=== PATIENT | male | born 1945 | race Caucasian/White ===

== ENCOUNTER 2023-04-05 11:17 | Outpatient (RCR) | payer MEDICARE, OTHER, SELFPAY | END 2023-04-05 23:59 | disposition home or self-care (01) | LOC: CRHB 11:17 | PROVIDERS: ATTENDING PHYSICIAN Internal Medicine Cardiovascular Disease; FAMILY PHYSICIAN Internal Medicine | DX: Z95.4 Presence of other heart-valve replacement (principal) | CPT/HCPCS: G0422; G0423 ==

== ENCOUNTER 2023-04-07 09:44 | Outpatient (RCR) | payer MEDICARE, OTHER, SELFPAY ==
[2023-04-06 09:18] LABS: HDL Cholesterol 50 mg/dl; LDL Cholesterol, Calculated 41 mg/dl; Total Cholesterol 115 mg/dl (50-199); Triglyceride 123 mg/dl (10-149); Very Low Density Lipoprotein 24 mg/dl (0-30)
== END 2023-04-07 23:59 | disposition home or self-care (01) ==
LOC: CRHB 09:44
PROVIDERS: ATTENDING PHYSICIAN Internal Medicine Cardiovascular Disease; FAMILY PHYSICIAN Internal Medicine
DX: Z95.4 Presence of other heart-valve replacement (principal); Z79.02 Long term (current) use of antithrombotics/antiplatelets; Z79.82 Long term (current) use of aspirin; E11.9 Type 2 diabetes mellitus without complications; Z79.84 Long term (current) use of oral hypoglycemic drugs; Z88.2 Allergy status to sulfonamides
CPT/HCPCS: 36415; 80061; 93797; G0422; G0423

== ENCOUNTER → 2023-06-26 08:03 | Outpatient (REF) | payer MEDICARE, OTHER, SELFPAY ==
[2023-06-26 09:14] LABS: % Basophils 0.8 % (0-2); % Eosinophils 5.5 % (0-6); % Immature Granulocytes 0.3 % (0-0.5); % Lymphocytes 19.2 % (20.5-51.1); % Monocytes 7.7 % (1.7-9.3); % Neutrophils 66.5 % (42.2-75.2); Absolute Basophils 0.1 10^3/uL (0-0.2); Absolute Eosinophils 0.4 10^3/uL (0-0.7); Absolute Lymphocytes 1.3 10^3/uL (1.2-3.4); Absolute Monocytes 0.5 10^3/uL (0.1-0.6); Absolute Neutrophils 4.3 10^3/uL (1.4-6.5); Hematocrit 42.4 % (39.0-52.0); Hemoglobin 14.3 g/dL (13.0-18.0); Mean Corp Hgb Conc. 33.7 g/dL (33.0-37.0); Mean Corpuscular Hgb 31.8 pg (27.0-31.0); Mean Corpuscular Volume 94.4 fL (80.0-94.0); Mean Platelet Volume 10.8 fL (7.4-10.4); Nucleated Red Blood Cells % 0 % (-); Platelet Count 214 10^3/uL (130-400); Red Blood Cell Count 4.49 10^6/uL (4.70-6.10); Red Cell Dist. Width 12.7 % (11.5-14.5); White Blood Cell Count 6.5 10^3/uL (4.8-10.8)
[2023-06-26 09:42] LABS: ALT (SGPT) 15 U/L (0-50); AST (SGOT) 23 U/L (17-59); Albumin 4.3 g/dl (3.5-5.0); Alkaline Phosphatase 47 U/L (38-126); Blood Urea Nitrogen 25 mg/dl (9-20); Carbon Dioxide 28 mmol/L (22-30); Chloride 103 mmol/L (98-107); Glucose 125 mg/dl (70-99); Potassium 4.4 mmol/L (3.5-5.1); Sodium 139 mmol/L (135-145); Total Bilirubin 0.6 mg/dl (0.2-1.3); Total Protein 6.7 g/dl (6.3-8.2); eGFR > 60.00
[2023-06-26 10:15] LABS: TSH Reflex To Free T4 1.28 uIU/ml (0.47-4.68)
[2023-06-26 10:30] LABS: Microalbumin, Random Urine 1.5 mg/dl (0.6-1.7); Microalbumin/creatinine Ratio 17.4 mg/g
[2023-06-26 11:23] LABS: Glycohemoglobin (HgbA1c) 6.8 % (4.0-5.6)
[2023-06-29 14:15] LABS: Magnesium 2.1 mg/dl (1.6-2.3)
[2023-06-29 16:30] LABS: Vitamin B12 189 pg/ml (239-931)
== END ==
LOC: REG 08:03
PROVIDERS: ATTENDING PHYSICIAN Nurse Practitioner Family; FAMILY PHYSICIAN Internal Medicine
DX: R53.83 Other fatigue (principal); E11.65 Type 2 diabetes mellitus with hyperglycemia
CPT/HCPCS: 36415; 80053; 82043; 82570; 82607; 83036; 83735; 84443; 85025

== ENCOUNTER → 2023-07-27 06:27 | Day surgery (SDC) | payer MEDICARE, OTHER, SELFPAY ==
[2023-07-27 10:50] LABS: Glucose - Point of Care 127 mg/dl (70-99)
== END ==
LOC: GI 06:27
PROVIDERS: ATTENDING PHYSICIAN Internal Medicine Gastroenterology
DX: Z12.11 Encounter for screening for malignant neoplasm of colon (principal); D12.4 Benign neoplasm of descending colon; K63.5 Polyp of colon; K57.30 Diverticulosis of large intestine without perforation or abscess without bleeding; K64.8 Other hemorrhoids; Z86.010 Personal history of colon polyps; Z80.0 Family history of malignant neoplasm of digestive organs; Z13.810 Encounter for screening for upper gastrointestinal disorder; K44.9 Diaphragmatic hernia without obstruction or gangrene; K31.89 Other diseases of stomach and duodenum
CPT/HCPCS: 45380; 43239; 88305; 82962; 88342

== ENCOUNTER → 2023-09-22 08:05 | Outpatient (REF) | payer MEDICARE, OTHER, SELFPAY | LOC: REG 08:05 | PROVIDERS: ATTENDING PHYSICIAN Thoracic Surgery (Cardiothoracic Vascular Surgery); FAMILY PHYSICIAN Internal Medicine | DX: Q23.1 Congenital insufficiency of aortic valve (principal) | CPT/HCPCS: 36415; 82565 ==

== ENCOUNTER → 2023-09-27 07:00 | Outpatient (REF) | payer MEDICARE, OTHER, SELFPAY | LOC: RCS 07:00 | PROVIDERS: ATTENDING PHYSICIAN Thoracic Surgery (Cardiothoracic Vascular Surgery); FAMILY PHYSICIAN Internal Medicine | DX: Q23.1 Congenital insufficiency of aortic valve (principal) | CPT/HCPCS: 71275; 93306; Q9967 ==

== ENCOUNTER 2024-01-03 09:03 | Inpatient (IN) | payer MEDICARE, OTHER, SELFPAY ==
[2024-01-03] VITALS (15 sets, daily range): BP systolic 120–161; BP diastolic 53–86; BMI 23.4; BMI 24.3
[2024-01-03 05:13] LABS: % Basophils 0.4 % (0-2); % Eosinophils 0.5 % (0-6); % Immature Granulocytes 0.3 % (0-0.5); % Lymphocytes 8.2 % (20.5-51.1); % Monocytes 4.9 % (1.7-9.3); % Neutrophils 85.7 % (42.2-75.2); Absolute Basophils 0.1 10^3/uL (0-0.2); Absolute Eosinophils 0.1 10^3/uL (0-0.7); Absolute Lymphocytes 0.9 10^3/uL (1.2-3.4); Absolute Monocytes 0.6 10^3/uL (0.1-0.6); Absolute Neutrophils 9.8 10^3/uL (1.4-6.5); Hematocrit 43.2 % (39.0-52.0); Hemoglobin 15.3 g/dL (13.0-18.0); Mean Corp Hgb Conc. 35.4 g/dL (33.0-37.0); Mean Corpuscular Hgb 31.7 pg (27.0-31.0); Mean Corpuscular Volume 89.4 fL (80.0-94.0); Mean Platelet Volume 10.7 fL (7.4-10.4); Nucleated Red Blood Cells % 0 % (-); Platelet Count 239 10^3/uL (130-400); Red Blood Cell Count 4.83 10^6/uL (4.70-6.10); Red Cell Dist. Width 12.4 % (11.5-14.5); White Blood Cell Count 11.5 10^3/uL (4.8-10.8)
[2024-01-03] MEDS: ZOFRAN 4 MG IV (05:21)
[2024-01-03] MEDS: OMNIPAQUE 50 ML PO (05:22)
[2024-01-03 05:24] LABS: ALT (SGPT) 35 U/L (0-50); AST (SGOT) 34 U/L (17-59); Albumin 5.1 g/dl (3.5-5.0); Alkaline Phosphatase 36 U/L (38-126); Blood Urea Nitrogen 23 mg/dl (9-20); Calcium 10.3 mg/dl (8.4-10.2); Carbon Dioxide 25 mmol/L (22-30); Chloride 100 mmol/L (98-107); Estimated Creatinine Clearance 69 ml/min; Glucose 172 mg/dl (70-99); Lipase 117 U/L (23-300); Potassium 4.7 mmol/L (3.5-5.1); Sodium 141 mmol/L (135-145); Total Bilirubin 0.7 mg/dl (0.2-1.3); Total Protein 7.6 g/dl (6.3-8.2); eGFR > 60.00
[2024-01-03 05:33] LABS: Lactic Acid 1.3 mmol/L (0.7-2.0)
--- NOTE | 2024-01-03 05:58 | ED.GENMED ---
History of Present Illness
General
Chief Complaint: Abdominal Pain
Time Seen by Provider: 01/03/24 05:58
History of Present Illness
History of Present Illness:
TIME OF INITIAL ENCOUNTER: 6 AM
HPI: Yesterday around 4 PM, after eating some sourdough bread, the patient developed epigastric discomfort. This then led to nausea and then vomiting. He never had any diarrhea. He had a normal formed bowel movement in the waiting room this
morning. He has ongoing pain. He was given Zofran prior to my initial evaluation but now the nausea has recurred. He has not had any fevers. He has not had any abdominal surgeries. He had a similar episode but not as severe when he had
Helicobacter. He takes omeprazole.
EXAM:
GENERAL: Well appearing in minimal distress
HEENT: Moist oral mucosa
CARDIOVASCULAR: No murmurs, normal heart rate, regular rhythm, No chest wall tenderness
PULMONARY: No respiratory distress, breath sounds are clear and equal
ABDOMEN: Soft with no peritoneal signs, mild epigastric tenderness
NEUROLOGIC: Excellent strength all extremities, no coordination deficits
PSYCHIATRIC: Appropriate mental status, normal insight and judgement
EXTREMITIES: Nontender, no edema, moves all extremities equally
SKIN: No rash, no lesions
NUMBER AND COMPLEXITY OF PROBLEMS ADDRESSED AT THE ENCOUNTER
� Chronic conditions affecting care: High blood pressure, hyperlipidemia, GERD
� Acute Exacerbation and/or Progression of Chronic Illness: This is an acute problem
� Differential Diagnosis includes: Gastritis, GERD, esophagitis, viral syndrome, foodborne illness
AMOUNT AND/OR COMPLEXITY OF DATA TO BE REVIEWED AND ANALYZED
� I performed an independent evaluation of and my interpretation is:
EKG: Sinus 70, PVCs
CT: I personally reviewed and agree with radiologist interpretation of 'MODERATE-SIZED PARAESOPHAGEAL HIATAL HERNIA with organoaxial positioning of the stomach and moderate gastric distention. Mild distention and moderate wall
thickening in left upper quadrant jejunal small bowel loops. Diagnostic possibilities are (1) an acute gastroenteritis or (2) a partial gastric outlet obstruction secondary to a partially obstructing gastric volvulus'
X-rays:
Laboratory Studies: White count 11.5, chemistries unremarkable however glucose is 172, LFTs and lipase normal
Other:
� Review of other/old records: I reviewed records, the patient had a cath June 2022 that showed nonobstructive coronary disease
� Clinical information was obtained by an independent historian: None needed
� Prescriptions/Medications Considered but not given: Offered but declined any analgesia
� Further testing considered but not performed:
RISK OF COMPLICATIONS AND/OR MORBIDITY OR MORTALITY OF PATIENT MANAGEMENT
� Social determinants of health affecting care: Lives at home
� Discussion with other providers: Hospitalist for admission at 7:18 AM; also discussed with Dr. Espinal at 8:30 AM who recommends NG tube placement
� Escalation of care including admission/observation vs risk of discharge considered: Blood work relatively unremarkable. Given uncertain pain, will obtain CT imaging. Patient could not tolerate any additional oral
contrast�will send for CT now
ANY OTHER UPDATES:
6:10 AM: Patient cannot tolerate any further oral contrast. Zofran had already been given. Will switch to Reglan.
7:15 AM: CT imaging reviewed. Patient only feels minimally improved. Will plan to keep in the hospital for n.p.o./further evaluation.
Past History
Past History
ED Past Medical History: Other (esophageal stricture)
Social History
Personal:
Living: with family
Phy Exam
Physical Exam
Physical Exam:
See HPI
Course
Orders/Labs/Results
Orders:
Orders
01/03/24 04:06
Urinalysis Reflex To Culture Urgent
01/03/24 04:42
Complete Blood Count/With Diff Urgent
Comprehensive Metabolic Panel Urgent
Lactic Acid Urgent
Lipase Urgent
01/03/24 04:57
EKG [Electrocardiogram (*1)] Urgent
Reason for Study: Abdominal Pain
01/03/24 04:58
CT Abd/pel W Iv And Oral Contr Urgent
Comment:
Reason For Exam: abdominal pain, hx of hernia
EKG- Treatment ONCE
Iohexol [Omnipaque] See Protocol PO NOW STA
01/03/24 05:17
Ondansetron Injectable [Zofran] 4 mg .ROUTE .twidoxK-MED ONE
01/03/24 05:20
Ondansetron Injectable [Zofran] 4 mg IV NOW STA
01/03/24 05:56
Metoclopramide [Reglan] 10 mg .ROUTE .[employer]-MED ONE
01/03/24 06:10
0.9% Sodium Chloride 1000 ml [Nss] 1,000 ml IV BOLUS
Diphenhydramine [Benadryl] 25 mg IV NOW STA
Metoclopramide [Reglan] 10 mg IV NOW STA
01/03/24 06:15
H. pylori Antigen, Fecal [S] Urgent
01/03/24 07:12
Famotidine [Pepcid] 20 mg IV NOW STA
01/03/24 07:29
NG Tube [GI tube insertion- Treatment] ONCE
Abnormal Lab Results
01/03/24
04:42
WBC 11.5 H 10^3/uL
(4.8-10.8)
MCH 31.7 H pg
(27.0-31.0)
MPV 10.7 H fL
(7.4-10.4)
Absolute Neuts (auto) 9.8 H 10^3/uL
(1.4-6.5)
Absolute Lymphs (auto) 0.9 L 10^3/uL
(1.2-3.4)
Neutrophils % 85.7 H %
(42.2-75.2)
Lymphocytes % 8.2 L %
(20.5-51.1)
BUN 23 H mg/dl
(9-20)
Glucose 172 H mg/dl
(70-99)
Calcium 10.3 H mg/dl
(8.4-10.2)
Alkaline Phosphatase 36 L U/L
(38-126)
Albumin 5.1 H g/dl
(3.5-5.0)
01/03/24 04:42
01/03/24 04:42
Vital Signs
Initial and Last Documented VS:
Initial Vital Signs
Temp Pulse Resp BP Pulse Ox
98.1 F 78 22 144/86 97
01/03/24 03:48 01/03/24 03:48 01/03/24 03:48 01/03/24 03:48 01/03/24 03:48
Last Documented Vital Signs
Temp Pulse Resp BP Pulse Ox
98.1 F 67 15 151/69 96
01/03/24 03:48 01/03/24 07:23 01/03/24 07:23 01/03/24 07:23 01/03/24 07:23
*Critical Care Note
Total Time (30-74mins, 75-104mins- exclusive of procedures): Not Applicable
ED Attending Note
-
Portions of this chart may have been created with voice recognition software.� Occasional wrong word or��sound alike� substitutions may have occurred due to the inherent limitations of voice recognition software.
Discharge Plan
Departure
Patient Disposition: Admit
Date of Disposition: 01/03/24
Time of Disposition: 07:22
Presentation/result/management discussed w/ accepting MD/DO: Hospitalist
Discharge Problem:
Abdominal pain
Prescriptions:
No Action
metformin 500 MG tablet
1,000 mg PO BID
omeprazole 20 mg Capsule,Delayed Release(Dr/Ec)
40 mg PO BID
dapagliflozin propanediol [Farxiga] 10 mg Tablet
10 mg PO DAILY
losartan 50 mg Tablet
50 mg PO QPM
aspirin 81 mg Tablet,Chewable
325 mg PO QPM
rosuvastatin [Crestor] 40 mg Tablet
40 mg PO QPM
Co Q-10
1 tab PO DAILY
Vitamin B-12
1 tab PO DAILY
Vitamin D3
1 tab PO DAILY
Referrals:
PRIVATE,PHYSICIAN [Family Provider] -
Interventions
Interventions:
*Risk Screen - Suicide Last Done: 01/03/24 03:46
*General Assessment Last Done: 01/03/24 04:55
*Neglect/Abuse Screening Last Done: 01/03/24 03:46
ED- Fall Risk Assessment Last Done: 01/03/24 05:34
*ED COVID-19 Vaccine History Last Done: 01/03/24 04:55
RH-Mnyxry-Gkkyvykkoj Assessment Last Done: 01/03/24 07:25
Discharge Date and Time
Print Language: GREENLANDIC
[2024-01-03] MEDS: BENADRYL 25 MG IV (06:17)
[2024-01-03] MEDS: REGLAN 10 MG IV (06:18)
[2024-01-03] MEDS: NSS 1000 IV (06:19)
--- NOTE | 2024-01-03 06:25 | EDRN ---
Pt. rang call mcgowan at about 0600, told this rn 'I got about half of the first cup of contrast down, but I cannot tolerate it, it makes my pain worse, and I'm so nauseas'. ED attending aware, CT aware. Pt. no longer to drink contrast, CT aware pt. is
ready for them.
[2024-01-03] MEDS: PEPCID 20 MG IV (07:47)
--- NOTE | 2024-01-03 08:38 | HPS.HSE ---
Family Physician
-
Family Physician: PHYSICIAN PRIVATE
Chief Complaint
-
Abdominal pain/nausea/vomiting
History of Present Illness
Patient is a 78-year-old male with past medical history of bicuspid aortic valve/aortic stenosis status post bioprosthetic aortic valve placement, essential hypertension, type 2 diabetes, hiatal hernia, gastroesophageal reflux disease,
hyperlipidemia, history of Schatzki's ring, history of oral herpes came to ER with new onset of abdominal pain nausea and vomiting from yesterday evening. Patient had a sourdough bread yesterday in the evening after which patient started to having
significant epigastric pain associated with nausea and multiple episodes of vomiting. Over the last 12 hours patient have close to 10 episodes of vomiting and bilious in nature, no blood noted. Patient was able to pass a solid bowel movement in
the morning today. Pain located in epigastric region nonradiating, none relieving factor except pain medication. In ER patient had a CT abdomen pelvis showing paraesophageal hernia with Organoaxial rotation of stomach causing gastric outlet
obstruction. Case was discussed with general surgery and patient had an NG tube placed for gastric decompression.
By the patient seen in ER patient was comfortable and not in any distress. Patient denies of having any ongoing feeling of nausea. Associated with above-mentioned abdominal symptom patient was also having chills although no true fever like feeling.
Patient denies of having any cardiopulmonary complaints.
Medical History
Past Medical History
Past Medical History: Reports Other
Additional Past Medical History:
aortic stenosis status post bioprosthetic aortic valve placement, essential hypertension, type 2 diabetes, hiatal hernia, gastroesophageal reflux disease, hyperlipidemia
Past Surgical History: Reports Other
Social History
Tobacco: Non-smoker
Alcohol: None
Drug: None
Personal:
Living: With Family
Family History
Family History: Not pertinent
Allergies / Home Medications
Allergies reflects when Allergies were last updated in [facility].
Home Medications with original date entered in [facility]
Allergy/Medication List:
Allergies
Allergy/AdvReac Type Severity Reaction Status Date / Time
Sulfa (Sulfonamide Allergy Unknown Verified 01/03/24 03:50
Antibiotics)
sulfisoxazole Allergy Unknown Verified 01/03/24 03:50
SURGICAL TAPE Allergy Rash Uncoded 01/03/24 03:50
Home Medications
omeprazole 20 mg capsule,delayed release 40 mg PO BID 06/13/22
rosuvastatin 40 mg tablet (Crestor) 40 mg PO QPM 06/13/22
aspirin 325 mg tablet 325 mg PO DAILY 01/03/24
cholecalciferol (vitamin D3) 25 mcg (1,000 unit) tablet (Vitamin D3) 25 mcg PO DAILY 01/03/24
coQ10 (ubiquinol) 100 mg capsule 100 mg PO DAILY 01/03/24
cyanocobalamin (vitamin B-12) 1,000 mcg tablet 1,000 mcg PO DAILY 01/03/24
dapagliflozin propanediol 10 mg tablet (Farxiga) 10 mg PO DAILY 01/03/24
diphenhydramine 25 mg-acetaminophen 500 mg tablet (Tylenol PM Extra Strength) 1 tab PO HS 01/03/24
losartan 25 mg tablet 25 mg PO DAILY 01/03/24
metformin 500 mg tablet 1,000 mg PO BID 01/03/24
simethicone 80 mg chewable tablet 80 mg PO BIDPRN PRN gas pains 01/03/24
Review of Systems
-
A 12 point ROS was completed and negative except as noted: Yes
Physical Exam
Vital Signs
Vital Signs
Temp Pulse Resp BP Pulse Ox
98.1 F 67 15 144/71 95
01/03/24 03:48 01/03/24 07:23 01/03/24 07:23 01/03/24 08:00 01/03/24 08:30
Physical Exam
General: Well Developed, Well Nourished and No Apparent Distress
HEENT: Atraumatic
Respiratory: Clear
Cardiac: S1/S2 and Regular Rhythm; No Murmur or Rub
GI: Soft, Non Distended and Tender (Epigastric); No Normal Bowel Sounds (Hyperactive bowel sounds) or Organomegaly
Rectal: Deferred by Provider
Musculoskeletal: No Clubbing, No Cyanosis and No Edema
Skin: No Rash
Neuro: Nonfocal/grossly intact
Laboratory Results
-
01/03/24 04:42
01/03/24 04:42
Laboratory Results
PT Cancelled 01/03/24 04:42
INR Cancelled 01/03/24 04:42
APTT Cancelled 01/03/24 04:42
Lactic Acid 1.3 mmol/L (0.7-2.0) 01/03/24 04:42
Total Bilirubin 0.7 mg/dl (0.2-1.3) 01/03/24 04:42
AST 34 U/L (17-59) 01/03/24 04:42
ALT 35 U/L (0-50) 01/03/24 04:42
Alkaline Phosphatase 36 U/L (38-126) L 01/03/24 04:42
Lipase 117 U/L (23-300) 01/03/24 04:42
Data Reviewed
-
CT Scan: Image Personally Visualized and interpreted, Report Reviewed by me, Discussed with Physician, Discussed with Patient and Discussed with Family
Impression/Plan
-
CT a/p
1. MODERATE-SIZED PARAESOPHAGEAL HIATAL HERNIA with organoaxial positioning of the stomach and moderate gastric distention. Mild distention and moderate wall thickening in left upper quadrant jejunal small bowel loops. Diagnostic possibilities are
(1) an acute gastroenteritis or (2) a partial gastric outlet obstruction secondary to a partially obstructing gastric volvulus.
2. Very severe diverticulosis in the sigmoid colon.
3. Large number of bilateral renal cysts.
4. Mild distention of the urinary bladder.
5. 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

1. Presumed gastric outlet obstruction from organoaxial rotation of stomach
Paraesophageal hernia
-Patient presented with acute onset of abdominal pain/nausea/multiple episode of nonbloody vomiting.
-CT abdomen pelvis in ER showing distended gastric body with oral contrast present in stomach with distal end roated and herniated causiong GOO
-Case discussed by ER physician to general surgery and patient to be remain strict n.p.o.
-NG tube placed for gastric decompression
-Maintain on LR at 100 mL/h
-Maintain on IV Dilaudid for pain and zofran for nausea
-Admit to Medr floor
2. Bicuspid aortic valve/aortic stenosis status post bioprosthetic aortic valve placement
-Denies any other history of heart failure/A-fib/CAD
3. Essential hypertension
-Hold all oral blood pressure medication, will provide IV hydralazine if systolic blood pressure elevated above 160
4. type 2 diabetes
-Hold oral hypoglycemics, maintain on insulin sliding scale
gastroesophageal reflux disease
hyperlipidemia
history of Schatzki's ring
history of oral herpes
Full code
SCD
Total time spent : 78 mins
I personally saw and examined the patient.
I have reviewed all diagnostic interpretations and treatment plans as written.
Time includes patient management by me, time spent at the patients bedside, time to review lab and imaging results, discussing patient care, documentation in the medical record, and time spent with the family or caregiver and discussing care plan
with RN/Consultants.
[2024-01-03] MEDS: LR 1000 IV ×2 (10:15→20:12)
[2024-01-03] MEDS: PROTONIX IV 40 MG IV (10:18)
[2024-01-03] MEDS: NSS (PRESERVATIVE FREE) 10 ML IV (10:18)
--- NOTE | 2024-01-03 11:17 | CON.GS ---
Consultation
-
Requesting Provider: David
Performing Provider: Kylie
Reason for Consultation: PEH
Medical History
-
Chief Complaint: Abd pain
History of Present Illness:
78M with acute onset abd pain that began last night. Localized to upper abdomen, nonradiating. A/w n/v, multiple episodes. Last BM was today, normal. No exacerbating or relieving factors. At the time of my encounter his symptoms have resolved with
NGT to suction. There is about 1L of clear fluid with some sediment in the cannister. He has known about the [facility] for over 10 years, was advised not to have surgery if it was asymptomatic.
Past Medical History
Past Medical History: Other (aortic stenosis status post bioprosthetic aortic valve placement, essential hypertension, type 2 diabetes, hiatal hernia, gastroesophageal reflux disease, hyperlipidemia)
Past Surgical History: Cardiac (open heart)
Social History
Tobacco: Non-Smoker
Alcohol: None
Drug: None
Personal:
Living: With Family
Family History
Family History: Reviewed & Noncontributory
Allergies / Home Medications
Allergy/AdvReac Type Severity Reaction Status Date / Time
Sulfa (Sulfonamide Allergy Unknown Verified 01/03/24 03:50
Antibiotics)
sulfisoxazole Allergy Unknown Verified 01/03/24 03:50
SURGICAL TAPE Allergy Rash Uncoded 01/03/24 03:50
�Medication �Instructions �Recorded �Confirmed �Type
omeprazole 20 mg capsule,delayed 40 mg PO BID 06/13/22 01/03/24 History
release
rosuvastatin 40 mg tablet (Crestor) 40 mg PO QPM 06/13/22 01/03/24 History
aspirin 325 mg tablet 325 mg PO DAILY 01/03/24 01/03/24 History
cholecalciferol (vitamin D3) 25 25 mcg PO DAILY 01/03/24 01/03/24 History
mcg (1,000 unit) tablet (Vitamin
D3)
coQ10 (ubiquinol) 100 mg capsule 100 mg PO DAILY 01/03/24 01/03/24 History
cyanocobalamin (vitamin B-12) 1,000 mcg PO DAILY 01/03/24 01/03/24 History
1,000 mcg tablet
dapagliflozin propanediol 10 mg 10 mg PO DAILY 01/03/24 01/03/24 History
tablet (Farxiga)
diphenhydramine 25 1 tab PO HS 01/03/24 01/03/24 History
mg-acetaminophen 500 mg tablet
(Tylenol PM Extra Strength)
losartan 25 mg tablet 25 mg PO DAILY 01/03/24 01/03/24 History
metformin 500 mg tablet 1,000 mg PO BID 01/03/24 01/03/24 History
simethicone 80 mg chewable tablet 80 mg PO BIDPRN PRN gas pains 01/03/24 01/03/24 History
Review of Systems
-
A 10 point review of systems was completed, and was negative except as per HPI.
Physical Exam
Vital Signs
Temp Pulse Resp BP Pulse Ox
98.1 F 67 15 144/71 94
01/03/24 03:48 01/03/24 07:23 01/03/24 07:23 01/03/24 08:00 01/03/24 09:00
01/02/24 01/03/24 01/04/24
06:59 06:59 06:59
Actual Weight 78.1 kg
Body Mass Index (BMI) 23.4
Lab Results
01/03/24 04:42
01/03/24 04:42
WBC 11.5 10^3/uL (4.8-10.8) H 01/03/24 04:42
Hgb 15.3 g/dL (13.0-18.0) 01/03/24 04:42
Hct 43.2 % (39.0-52.0) 01/03/24 04:42
Plt Count 239 10^3/uL (130-400) 01/03/24 04:42
Abs Immat Gran (auto) 0.0 10^3/uL (0-0.05) 01/03/24 04:42
Neutrophils % 85.7 % (42.2-75.2) H 01/03/24 04:42
Physical Exam
General: Well Developed, Well Nourished and No Apparent Distress
HEENT: Normocephalic and Anicteric
GI: Soft, Non Tender and Non Distended
Skin: Warm and Dry
Neuro: AO x 3
Psych: Calm
Data Reviewed
-
CT Scan: Image Personally Visualized and interpreted, Report Reviewed by me, Discussed with Physician, Discussed with Patient and Discussed with Family
Labs: Labs Reviewed by me, Discussed with Physician, Discussed with Patient and Discussed with Family
Old Records: Reviewed
Assessment / Plan
-
78M with PEH with about 50% of distal stomach in the chest, including pylorus
AFVSS, mild leukocytosis noted
Symptoms resolved with NGT
CT A/P with PEH as above, no pneumatosis, no PV gas, no free air
Plan for NPO/IBF/NGT for today to allow time for decompression
UGI tomorrow to r/o ongoing GOO
DVT ppx
All other care as per primary team
[2024-01-03 12:12] LABS: Glucose - Point of Care 121 mg/dl (70-99)
[2024-01-03] MEDS: NOVOLOG FLEXPEN-LOW RESISTANCE SC ×3 (12:21→18:18)
[2024-01-03 15:37] LABS: Urine Albumin Negative (Neg - Trace); Urine Bilirubin Negative (Negative); Urine Character Clear (Clear); Urine Color Yellow; Urine Glucose 3+ (Negative); Urine Ketone 2+ (Negative); Urine Leukocyte Negative (Negative); Urine Nitrite Negative (Negative); Urine Occult Blood Negative (Negative); Urine Specific Gravity 1.015 (<1.030); Urine Urobilinogen Negative (Neg - 1+)
[2024-01-03 18:13] LABS: Glucose - Point of Care 92 mg/dl (70-99)
[2024-01-03 18:45] LABS: Glucose - Point of Care 99 mg/dl (70-99)
[2024-01-03] MEDS: BENADRYL 12.5 MG IV (20:10)
[2024-01-04] VITALS (13 sets, daily range): BP systolic 30–152; BP diastolic 59–72; BMI 24.3; BMI 21.8
[2024-01-04 00:12] LABS: Glucose - Point of Care 83 mg/dl (70-99)
[2024-01-04] MEDS: NOVOLOG FLEXPEN-LOW RESISTANCE SC ×4 (00:24→18:29)
[2024-01-04] MEDS: LR 1000 IV ×2 (05:51→21:05)
[2024-01-04 06:11] LABS: Glucose - Point of Care 108 mg/dl (70-99)
[2024-01-04 08:24] LABS: Hematocrit 40.4 % (39.0-52.0); Mean Corp Hgb Conc. 34.7 g/dL (33.0-37.0); Mean Corpuscular Hgb 32.7 pg (27.0-31.0); Mean Corpuscular Volume 94.4 fL (80.0-94.0); Mean Platelet Volume 10.9 fL (7.4-10.4); Platelet Count 188 10^3/uL (130-400); Red Blood Cell Count 4.28 10^6/uL (4.70-6.10); Red Cell Dist. Width 12.2 % (11.5-14.5); White Blood Cell Count 10.9 10^3/uL (4.8-10.8)
[2024-01-04 08:53] LABS: Glycohemoglobin (HgbA1c) 7.6 % (4.0-5.6)
[2024-01-04 09:04] LABS: Blood Urea Nitrogen 19 mg/dl (9-20); Calcium 9.2 mg/dl (8.4-10.2); Carbon Dioxide 22 mmol/L (22-30); Chloride 102 mmol/L (98-107); Estimated Creatinine Clearance 77 ml/min; Glucose 88 mg/dl (70-99); Potassium 4.3 mmol/L (3.5-5.1); Sodium 141 mmol/L (135-145); eGFR > 60.00
[2024-01-04] MEDS: PROTONIX IV 40 MG IV ×2 (09:26→21:07)
[2024-01-04] MEDS: NSS (PRESERVATIVE FREE) 10 ML IV (09:26)
[2024-01-04] MEDS: ZOFRAN 4 MG IV (09:34)
--- NOTE | 2024-01-04 10:16 | W.PN.GS2 ---
Addendum entered and electronically signed by Jamil Donovan MD 01/04/24 12:30:
Patient seen and examined earlier this a.m. and subsequently again in follow-up. Agree with documented progress note with additions noted here.
Post upper GI patient had continued discomfort and fullness in the epigastrium but no pain.
Mild nausea but no further vomiting or retching with NG tube in place.
AFVSS
ABD: Soft, nondistended, minimal epigastric tenderness.
NG tube in place -return to suction with contrast returning to canister
Assessment/plan: 78-year-old male with acute high-grade partial gastric outlet obstruction secondary to paraesophageal hernia with organoaxial gastric volvulus
Reviewed with patient indications for operative correction given persistent symptoms and degree of obstruction seen on upper GI
There is OR availability today and patient appears medically stable to proceed
Robotic assisted laparoscopic repair paraesophageal hernia, possible gastropexy versus fundoplication; intraoperative EGD was reviewed in detail including the operative technique, potential operative findings and their management. We discussed
steps of the operative procedure, typical postoperative recovery and care. Reviewed benefits and potential risk such as but not limited to bleeding including the need for blood transfusion, infectious and wound related complications, iatrogenic
injury to surrounding viscera (stomach, esophagus, vagus nerves, spleen, liver, pancreas, etc.) Discussed initial postoperative dietary changes. Any of the patient's concerns or questions were fully addressed and informed consent was obtained.
Patient on OR schedule for today
Cefotetan on-call to the OR
Original Note:
Today's Communication / Plan
-
NGT/NPO/IVF
Assessment / Plan
-
78M presenting with partial gastric outlet obstruction secondary to PEH
UGI today partially completed, majority of contrast still in stomach
AFVSS, mild leukocytosis noted but improving
Symptoms resolved with NGT initially
Returned NGT to suction at bedside as symptomatic with clamping for testing
Plan:
NPO with IVF
C/W NGT to suction
Continue final images of UGI study
DVT ppx
All other care as per primary team
Tentative OR monday for RAL PEH repair
Subjective Data
-
Date of Service: January 04, 2024
Patient seen and examined at bedside with Dr. Donovan. Nauseated since contrast placed into NGT despite antiemetics. Passing flatus and had BM yesterday. Denies pain.
Objective Data
-
Intake and Output
01/03/24 01/04/24 01/05/24
06:59 06:59 06:59
Intake Total 1200 / 1200
Output Total 850 / 850 350 / 350
Balance 350 / 350 -350 / -350
Intake:
Oral fluids 0 / 0
IV fluids (Total) 1200 / 1200
Output:
Gastrointestinal tube output ( 150 / 150
Total)
[place] Sump 150 / 150
Urine, Voided 700 / 700 350 / 350
Vital Signs
Temp Pulse Resp BP Pulse Ox
97.9 F 75 18 152/70 98
01/04/24 07:25 01/04/24 07:25 01/04/24 07:25 01/04/24 07:25 01/04/24 07:25
Lab Results
01/04/24 06:19
01/04/24 06:19
Calcium 9.2 mg/dl (8.4-10.2) 01/04/24 06:19
Total Bilirubin 0.7 mg/dl (0.2-1.3) 01/03/24 04:42
AST 34 U/L (17-59) 01/03/24 04:42
ALT 35 U/L (0-50) 01/03/24 04:42
Alkaline Phosphatase 36 U/L (38-126) L 01/03/24 04:42
Total Protein 7.6 g/dl (6.3-8.2) 01/03/24 04:42
Albumin 5.1 g/dl (3.5-5.0) H 01/03/24 04:42
Physical Exam
-
Ox3
Coughing up mucous, belching
ABD soft, nt, nd
[2024-01-04] MEDS: COMPAZINE 10 MG IV (10:46)
[2024-01-04 11:45] LABS: Glucose - Point of Care 104 mg/dl (70-99)
--- NOTE | 2024-01-04 12:44 | W.SUR.PREOP ---
Pre-Operative Surgical Note
-
I have examined this patient prior to the performance of the scheduled procedure.
The patient's condition is unchanged from the time of the current History and
Physical and the patient is able to undergo the scheduled procedure.
[2024-01-04 13:43] LABS: Glucose - Point of Care 113 mg/dl (70-99)
--- NOTE | 2024-01-04 14:36 | W.PN.HOSP.TC ---
Today's Communication/Plan
-
for OR today
Assessment / Plan
Assessment / Plan
CT a/p
1. MODERATE-SIZED PARAESOPHAGEAL HIATAL HERNIA with organoaxial positioning of the stomach and moderate gastric distention. Mild distention and moderate wall thickening in left upper quadrant jejunal small bowel loops. Diagnostic possibilities are
(1) an acute gastroenteritis or (2) a partial gastric outlet obstruction secondary to a partially obstructing gastric volvulus.
2. Very severe diverticulosis in the sigmoid colon.
3. Large number of bilateral renal cysts.
4. Mild distention of the urinary bladder.
5. 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
Upper GI series
1. Large hiatal hernia.
2. Severe gastroesophageal reflux.
3. Only trace contrast progressed into the proximal duodenum at 15 minutes. Cannot rule out partially obstructing gastric volvulus.

1. Presumed gastric outlet obstruction from organoaxial rotation of stomach
Paraesophageal hernia
-Patient presented with acute onset of abdominal pain/nausea/multiple episode of nonbloody vomiting.
-CT abdomen pelvis in ER showing distended gastric body with oral contrast present in stomach with distal end roated and herniated causiong GOO
-NG tube placed for gastric decompression
-Maintain on LR at 100 mL/h
-Maintain on IV Dilaudid for pain and zofran for nausea
-upper GI series report as above, GS is planning to take patient to OR today
2. Bicuspid aortic valve/aortic stenosis status post bioprosthetic aortic valve placement
-Denies any other history of heart failure/A-fib/CAD
3. Essential hypertension
-Hold all oral blood pressure medication, will provide IV hydralazine if systolic blood pressure elevated above 160
4. type 2 diabetes
-Hold oral hypoglycemics, maintain on insulin sliding scale
gastroesophageal reflux disease
hyperlipidemia
history of Schatzki's ring
history of oral herpes
Full code
SCD
Anticipated Discharge: > 48 hours
Subjective/Interval History
-
Date of Service: January 04, 2024
some abd discomfort
no n/v
afebrile
Objective Data
-
Labs:
Laboratory Results
01/04/24
06:19
WBC 10.9 H
Hgb 14.0
Hct 40.4
Plt Count 188 D
Sodium 141
Potassium 4.3
Chloride 102
Carbon Dioxide 22
BUN 19
Creatinine 0.9
Glucose 88
Calcium 9.2
Vital Signs:
Vital Signs
Temp Pulse Resp BP Pulse Ox
97.9 F 75 18 152/70 98
01/04/24 07:25 01/04/24 07:25 01/04/24 07:25 01/04/24 07:25 01/04/24 07:25
I&O
01/03/24 01/04/24 01/05/24
06:59 06:59 06:59
Intake Total 1200 / 1200
Output Total 850 / 850 350 / 350
Balance 350 / 350 -350 / -350
Review of Systems
-
Respiratory: Reports No Symptoms
Cardiac: Reports No Symptoms
Abdomen/GI: Denies Abdominal Pain or Nausea
Physical Exam
-
General: No Apparent Distress and Comfortable
HEENT: Negative Oxygen
Respiratory: Clear to Auscultation
Cardiac: Regular Rhythm and S1/S2; Negative Murmur or Rub
GI: Soft, Nontender and Nondistended
Musculoskeletal: No Edema
Neuro: Awake, Alert, Oriented, No Motor Deficits and Nonfocal/Grossly Intact
Psych: Calm
--- NOTE | 2024-01-04 15:30 | CM ---
Pt in OR at time of assessment. CM spoke w/ spouse for information.
Pt lives w/ spouse in a [facility]- 10 steps to enter
Prev. independent, denies DME use for support and daily functioning
Denies SNF hx
Had VN/PT in the past thru [facility] after heart surgery
Address, point of contact and insurance verified
PCP: Dr. Flores
Pharmacy: [facility]
Plan: Home w/ HH vs no needs
CM will cont. following for d/c needs
--- NOTE | 2024-01-04 17:29 | W.IMMPOSTOP ---
Surgical Immed Post Op Note
-
Primary Surgeon: Zion
Assisting Surgeon: Harvey HER
Pre-op Diagnosis: incarcerated PEH with GOO
Post-op Diagnosis: incarcerated PEH with GOO
Procedure Performed: Robotic assisted laparoscopic repair incarcerated paraesophageal hernia with anterior gastropexy; EGD
Anesthesia Type: GETA +0.25% Marcaine
Specimen / Cultures: None/none
Estimated Blood Loss: 20 mL
Complications: None immediate
Operative Findings: Large type III paraesophageal hernia with incarcerated stomach and organoaxial volvulus resulting in gastric outlet obstruction. Stomach carefully detorsed; no ischemia or compromise from incarceration with volvulus. Hiatal
hernia sac and contents fully reduced to expose crural defect. Posterior crural closure with 4 simple interrupted 0 silk suture and 4 horizontal mattress pledgeted 0 silk suture between them. 58 [place]ian bougie utilized to size crural closure. L
shape configuration of anterior gastropexy at junction of gastric fundus and body to the left costal margin with 8 interrupted 0 silk sutures.
EGD findings included nonobstructive Schatzki's ring in the midesophagus, esophagus otherwise normal; normal GE junction; few Azar lesions within fundus/body of stomach but without active bleeding. Pylorus widely patent. Residual barium in
stomach washed out.
Drain: 19 Sahil intra-abdominal and thoracic space where hiatal hernia was reduced.
Patient's updated postoperatively via phone call
Postop plan: N.p.o. except sips and chips for comfort
IV fluid hydration
Analgesics and antiemetics as needed
Continue PPI IV twice daily until able to advance diet given presence of Azar lesions seen on upper endoscopy
PIPPA to bulb suction but will be removed prior to discharge
[2024-01-04 17:53] LABS: Glucose - Point of Care 165 mg/dl (70-99)
[2024-01-05 00:17] LABS: Glucose - Point of Care 176 mg/dl (70-99)
[2024-01-05] MEDS: TORADOL 10 MG IV ×2 (00:19→15:22)
[2024-01-05] MEDS: DILAUDID 0.25 MG IV (00:21)
[2024-01-05] MEDS: NOVOLOG FLEXPEN-LOW RESISTANCE 1 UNITS SC ×3 (01:06→22:00)
--- NOTE | 2024-01-05 02:15 | PTCARENOTE ---
ax3- s liters to maintain sats- lap sites on belly with glue intact. left trenton with 10 ml out so far. medicated with prn pain meds see am. pizano draining clear yellow to come out later this am. vitals wnl afebrile.
[2024-01-05 02:54] VITALS: BP 114/61
[2024-01-05] MEDS: LR 1000 IV (04:39)
[2024-01-05 05:06] LABS: Glucose - Point of Care 188 mg/dl (70-99)
--- NOTE | 2024-01-05 05:17 | PTCARENOTE ---
pt passing gas- tolerates sips of clears- -
--- NOTE | 2024-01-05 06:04 | PTCARENOTE ---
catheter removed pt on time and amount- urinal given
[2024-01-05 07:08] VITALS: BP 131/61
[2024-01-05] MEDS: PROTONIX IV 40 MG IV ×2 (08:10→20:23)
[2024-01-05] MEDS: NSS (PRESERVATIVE FREE) 10 ML IV (08:10)
[2024-01-05 08:14] LABS: Hematocrit 38.5 % (39.0-52.0); Hemoglobin 13.4 g/dL (13.0-18.0); Mean Corp Hgb Conc. 34.8 g/dL (33.0-37.0); Mean Corpuscular Hgb 32.8 pg (27.0-31.0); Mean Corpuscular Volume 94.4 fL (80.0-94.0); Mean Platelet Volume 10.9 fL (7.4-10.4); Platelet Count 184 10^3/uL (130-400); Red Blood Cell Count 4.08 10^6/uL (4.70-6.10); Red Cell Dist. Width 12.1 % (11.5-14.5); White Blood Cell Count 10.9 10^3/uL (4.8-10.8)
[2024-01-05 08:30] LABS: Blood Urea Nitrogen 29 mg/dl (9-20); Calcium 8.6 mg/dl (8.4-10.2); Carbon Dioxide 24 mmol/L (22-30); Chloride 101 mmol/L (98-107); Estimated Creatinine Clearance 66 ml/min; Glucose 127 mg/dl (70-99); Potassium 4.7 mmol/L (3.5-5.1); Sodium 139 mmol/L (135-145); eGFR > 60.00
--- NOTE | 2024-01-05 09:56 | CM ---
Patient seen at bedside with . Patient and indicated that they plan discharge home with no needs. CM will continue to follow for discharge planning needs.
Plan; home with no needs anticipated
[2024-01-05 09:58] LABS: Glucose - Point of Care 134 mg/dl (70-99)
--- NOTE | 2024-01-05 10:13 | W.PN.GS2 ---
Addendum entered and electronically signed by Boubacar Espinal MD 01/05/24 10:53:
I saw and examined the patient.
The News Technical Director's note was reviewed and I agree with the note.
Comment: Feels well, pain controlled, pizano out DTV, denies n/v, endorses flatus. Trial CLD. PRN pain meds/anti-emetics.
Original Note:
Today's Communication / Plan
-
Trial of clears
Assessment / Plan
-
78M presenting with gastric outlet obstruction secondary to incarcerated PEH with gastric volvulus now POD #1 RAL repair of PEH with anterior gastropexy. Intraop EGD with Azar's lesions present
AFVSS
Labs stable post op
Progressing well post operatively
Plan:
-Trial of clears
-IV PPI BID
-Continue with PIPPA, follow outputs
-Analgesics/antiemetics prn
-OOB/Ambulate
-VTE ppx with lovenox and scds
Subjective Data
-
Date of Service: January 05, 2024
Patient seen and examined at bedside with Dr. Espinal. Denies n/v. Passing flatus. Pain minimal.
Objective Data
-
Intake and Output
01/04/24 01/05/24 01/06/24
06:59 06:59 06:59
Intake Total 1200 / 1200 1390 / 1390
Output Total 850 / 850 2725 / 2725
Balance 350 / 350 -1335 / -1335
Intake:
Oral fluids 0 / 0 90 / 90
IV fluids (Total) 1200 / 1200 1300 / 1300
normosol 100 / 100
Output:
Drain Output (Total) 75 / 75
Left Abdomen Tc-Jhon 75 / 75
Gastrointestinal tube output ( 150 / 150
Total)
Preble Sump 150 / 150
Urine, Pizano 2300 / 2300
Urine, Voided 700 / 700 350 / 350
Vital Signs
Temp Pulse Resp BP Pulse Ox
98.1 F 64 16 131/61 98
01/05/24 07:08 01/05/24 07:08 01/05/24 07:08 01/05/24 07:08 01/05/24 07:08
Lab Results
01/05/24 06:55
01/05/24 06:55
Calcium 8.6 mg/dl (8.4-10.2) 01/05/24 06:55
Total Bilirubin 0.7 mg/dl (0.2-1.3) 01/03/24 04:42
AST 34 U/L (17-59) 01/03/24 04:42
ALT 35 U/L (0-50) 01/03/24 04:42
Alkaline Phosphatase 36 U/L (38-126) L 01/03/24 04:42
Total Protein 7.6 g/dl (6.3-8.2) 01/03/24 04:42
Albumin 5.1 g/dl (3.5-5.0) H 01/03/24 04:42
Physical Exam
-
NAD, Ox3
ABD soft, mild left lateral tenderness, nd
Incisions with intact glue, no erythema. PIPPA with SSF
[2024-01-05] MEDS: NOVOLOG FLEXPEN-LOW RESISTANCE SC ×2 (10:30→16:59)
[2024-01-05 11:00] VITALS: BP 124/67
[2024-01-05 12:20] LABS: Glucose - Point of Care 210 mg/dl (70-99)
[2024-01-05] MEDS: NOVOLOG FLEXPEN-LOW RESISTANCE 2 UNITS SC (12:22)
[2024-01-05] MEDS: LR IV (12:35)
--- NOTE | 2024-01-05 13:35 | W.PN.HOSP.TC ---
Today's Communication/Plan
-
diet per GS
continue other meds
Assessment / Plan
Assessment / Plan
CT a/p
1. MODERATE-SIZED PARAESOPHAGEAL HIATAL HERNIA with organoaxial positioning of the stomach and moderate gastric distention. Mild distention and moderate wall thickening in left upper quadrant jejunal small bowel loops. Diagnostic possibilities are
(1) an acute gastroenteritis or (2) a partial gastric outlet obstruction secondary to a partially obstructing gastric volvulus.
2. Very severe diverticulosis in the sigmoid colon.
3. Large number of bilateral renal cysts.
4. Mild distention of the urinary bladder.
5. 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
Upper GI series
1. Large hiatal hernia.
2. Severe gastroesophageal reflux.
3. Only trace contrast progressed into the proximal duodenum at 15 minutes. Cannot rule out partially obstructing gastric volvulus.

1. Presumed gastric outlet obstruction from organoaxial rotation of stomach
Paraesophageal hernia
-Patient presented with acute onset of abdominal pain/nausea/multiple episode of nonbloody vomiting.
-CT abdomen pelvis in ER showing distended gastric body with oral contrast present in stomach with distal end roated and herniated causiong GOO
-Maintain on IV Dilaudid for pain and zofran for nausea
-s/p Robotic assisted laparoscopic repair incarcerated paraesophageal hernia with anterior gastropexy 01/03
-started on CL diet, advancement per GI
2. Bicuspid aortic valve/aortic stenosis status post bioprosthetic aortic valve placement
-Denies any other history of heart failure/A-fib/CAD
3. Essential hypertension
-BP remains controlled of HTN meds, will resume slowly
4. type 2 diabetes
- maintain on insulin sliding scale for today
gastroesophageal reflux disease
hyperlipidemia
history of Schatzki's ring
history of oral herpes
Full code
SCD
Anticipated Discharge: 24 - 48 hours
Subjective/Interval History
-
Date of Service: January 05, 2024
denies of having any nausea/vomiting
afebrile
passing gas, no BM
Objective Data
-
Labs:
Laboratory Results
01/05/24
06:55
WBC 10.9 H
Hgb 13.4
Hct 38.5 L
Plt Count 184
Sodium 139
Potassium 4.7
Chloride 101
Carbon Dioxide 24
BUN 29 H
Creatinine 1.0
Glucose 127 H
Calcium 8.6
Vital Signs:
Vital Signs
Temp Pulse Resp BP Pulse Ox
98.4 F 63 16 124/67 97
01/05/24 11:00 01/05/24 11:00 01/05/24 11:00 01/05/24 11:00 01/05/24 11:00
I&O
01/04/24 01/05/24 01/06/24
06:59 06:59 06:59
Intake Total 1200 / 1200 1390 / 1390
Output Total 850 / 850 2725 / 2725 450 / 450
Balance 350 / 350 -1335 / -1335 -450 / -450
Review of Systems
-
Respiratory: Reports No Symptoms
Cardiac: Reports No Symptoms
Abdomen/GI: Reports Abdominal Pain; Denies Nausea
Physical Exam
-
General: No Apparent Distress and Comfortable
HEENT: Negative Oxygen
Respiratory: Clear to Auscultation
Cardiac: Regular Rhythm and S1/S2; Negative Murmur or Rub
GI: Soft, Nondistended and Other (Decreased Bowel sounds)
Musculoskeletal: No Edema
Neuro: Awake, Alert, Oriented, No Motor Deficits and Nonfocal/Grossly Intact
Psych: Calm
[2024-01-05 15:05] VITALS: BP 141/69
[2024-01-05 16:56] LABS: Glucose - Point of Care 146 mg/dl (70-99)
[2024-01-05] MEDS: LOVENOX 40 MG SC (18:30)
[2024-01-05] MEDS: MELATONIN 5 MG PO (20:23)
[2024-01-05] MEDS: TYLENOL 1000 MG PO (20:26)
[2024-01-05 21:13] LABS: Glucose - Point of Care 186 mg/dl (70-99)
[2024-01-05 23:27] VITALS: BP 124/64
[2024-01-06 07:08] VITALS: BP 137/76
[2024-01-06 07:16] LABS: Glucose - Point of Care 172 mg/dl (70-99)
[2024-01-06 07:30] LABS: Hematocrit 43.5 % (39.0-52.0); Hemoglobin 15.1 g/dL (13.0-18.0); Mean Corp Hgb Conc. 34.7 g/dL (33.0-37.0); Mean Corpuscular Hgb 32.3 pg (27.0-31.0); Mean Corpuscular Volume 93.1 fL (80.0-94.0); Mean Platelet Volume 10.5 fL (7.4-10.4); Platelet Count 208 10^3/uL (130-400); Red Blood Cell Count 4.67 10^6/uL (4.70-6.10); Red Cell Dist. Width 12.2 % (11.5-14.5); White Blood Cell Count 10.3 10^3/uL (4.8-10.8)
[2024-01-06 08:00] LABS: Blood Urea Nitrogen 20 mg/dl (9-20); Calcium 9.5 mg/dl (8.4-10.2); Carbon Dioxide 27 mmol/L (22-30); Chloride 100 mmol/L (98-107); Estimated Creatinine Clearance 74 ml/min; Glucose 162 mg/dl (70-99); Potassium 4.3 mmol/L (3.5-5.1); Sodium 138 mmol/L (135-145); eGFR > 60.00
[2024-01-06] MEDS: NOVOLOG FLEXPEN-LOW RESISTANCE 1 UNITS SC (08:19)
[2024-01-06] MEDS: PROTONIX IV 40 MG IV (08:20)
[2024-01-06] MEDS: NSS (PRESERVATIVE FREE) 10 ML IV (08:22)
[2024-01-06 12:04] LABS: Glucose - Point of Care 299 mg/dl (70-99)
[2024-01-06] MEDS: NOVOLOG FLEXPEN-LOW RESISTANCE 3 UNITS SC (12:10)
--- NOTE | 2024-01-06 12:53 | W.PN.GS2 ---
Today's Communication / Plan
-
okay for d/c
will remove PIPPA drain prior to discharge
Assessment / Plan
-
78M presenting with gastric outlet obstruction secondary to incarcerated PEH with gastric volvulus now POD #2 RAL repair of PEH with anterior gastropexy. Intraop EGD with Azar's lesions present
AFVSS
Labs stable post op
Progressing well post operatively
Plan:
-Advance to a soft diet
-IV PPI BID
-Will discontinue PIPPA drain prior to discharge
-Analgesics/antiemetics prn
-OOB/Ambulate
-VTE ppx with lovenox and scds
-Okay for discharge today. Discussed with Dr. Hernandez. Follow-up with Dr. Donovan in the office for a post op appointment.
Subjective Data
-
Date of Service: January 06, 2024
Patient states he feels well. He is tolerating a full liquid diet. He has no nausea or vomiting. He has bowel function.
Objective Data
-
Intake and Output
01/05/24 01/06/24 01/07/24
06:59 06:59 05:59
Intake Total 1390 / 1390 1320 / 1320
Output Total 2725 / 2725 2585 / 2585 40 / 40
Balance -1335 / -1335 -1265 / -1265 -40 / -40
Intake:
Oral fluids 90 / 90 1320 / 1320
IV fluids (Total) 1300 / 1300
normosol 100 / 100
Output:
Drain Output (Total) 75 / 75 160 / 160 40 / 40
Left Abdomen Tc-John 75 / 75 160 / 160 40 / 40
Urine, Mayers 2300 / 2300
Urine, Voided 350 / 350 2425 / 2425
Vital Signs
Temp Pulse Resp BP Pulse Ox
98.3 F 77 18 137/76 95
01/06/24 07:08 01/06/24 07:08 01/06/24 07:08 01/06/24 07:08 01/06/24 09:11
Lab Results
01/06/24 06:57
01/06/24 06:57
Calcium 9.5 mg/dl (8.4-10.2) 01/06/24 06:57
Total Bilirubin 0.7 mg/dl (0.2-1.3) 01/03/24 04:42
AST 34 U/L (17-59) 01/03/24 04:42
ALT 35 U/L (0-50) 01/03/24 04:42
Alkaline Phosphatase 36 U/L (38-126) L 01/03/24 04:42
Total Protein 7.6 g/dl (6.3-8.2) 01/03/24 04:42
Albumin 5.1 g/dl (3.5-5.0) H 01/03/24 04:42
Physical Exam
-
NAD, Ox3
ABD soft, mild left lateral tenderness, nd
Incisions with intact glue, no erythema. PIPPA with SSF
--- NOTE | 2024-01-06 13:59 | W.PN.HOSP.TC ---
Today's Communication/Plan
-
d/c home once PIPPA drain removed
Assessment / Plan
Assessment / Plan
CT a/p
1. MODERATE-SIZED PARAESOPHAGEAL HIATAL HERNIA with organoaxial positioning of the stomach and moderate gastric distention. Mild distention and moderate wall thickening in left upper quadrant jejunal small bowel loops. Diagnostic possibilities are
(1) an acute gastroenteritis or (2) a partial gastric outlet obstruction secondary to a partially obstructing gastric volvulus.
2. Very severe diverticulosis in the sigmoid colon.
3. Large number of bilateral renal cysts.
4. Mild distention of the urinary bladder.
5. 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
Upper GI series
1. Large hiatal hernia.
2. Severe gastroesophageal reflux.
3. Only trace contrast progressed into the proximal duodenum at 15 minutes. Cannot rule out partially obstructing gastric volvulus.

1. Presumed gastric outlet obstruction from organoaxial rotation of stomach
Paraesophageal hernia
-Patient presented with acute onset of abdominal pain/nausea/multiple episode of nonbloody vomiting.
-CT abdomen pelvis in ER showing distended gastric body with oral contrast present in stomach with distal end roated and herniated causiong GOO
-Maintain on IV Dilaudid for pain and zofran for nausea
-s/p Robotic assisted laparoscopic repair incarcerated paraesophageal hernia with anterior gastropexy 01/03
-tolerating soft diet.
-PIPPA drain removed by
2. Bicuspid aortic valve/aortic stenosis status post bioprosthetic aortic valve placement
-Denies any other history of heart failure/A-fib/CAD
3. Essential hypertension
-BP remains controlled of HTN meds, will resume slowly
4. type 2 diabetes
- maintain on insulin sliding scale for today
gastroesophageal reflux disease
hyperlipidemia
history of Schatzki's ring
history of oral herpes
Full code
SCD
Anticipated Discharge: Today
Subjective/Interval History
-
Date of Service: January 06, 2024
tolerating diet
no abd pain/n/v
having BM
Objective Data
-
Labs:
Laboratory Results
01/06/24
06:57
WBC 10.3
Hgb 15.1
Hct 43.5
Plt Count 208
Sodium 138
Potassium 4.3
Chloride 100
Carbon Dioxide 27
BUN 20
Creatinine 0.9
Glucose 162 H
Calcium 9.5
Vital Signs:
Vital Signs
Temp Pulse Resp BP Pulse Ox
98.3 F 77 18 137/76 95
01/06/24 07:08 01/06/24 07:08 01/06/24 07:08 01/06/24 07:08 01/06/24 09:11
I&O
01/05/24 01/06/24 01/07/24
06:59 06:59 05:59
Intake Total 1390 / 1390 1320 / 1320
Output Total 2725 / 2725 2585 / 2585 40 / 40
Balance -1335 / -1335 -1265 / -1265 -40 / -40
Review of Systems
-
Respiratory: Reports No Symptoms
Cardiac: Reports No Symptoms
Abdomen/GI: Reports No Symptoms
Physical Exam
-
General: No Apparent Distress and Comfortable
HEENT: Negative Oxygen
Respiratory: Clear to Auscultation
Cardiac: Regular Rhythm and S1/S2; Negative Murmur or Rub
GI: Soft, Nontender, Nondistended and Other (Clear lap insertion site, PIPPA drain with sanguinous drainage)
Musculoskeletal: No Edema
Neuro: Awake, Alert, Oriented, No Motor Deficits and Nonfocal/Grossly Intact
Psych: Calm
[2024-01-06 14:05] VITALS: BP 147/86
--- NOTE | 2024-01-07 16:35 | W.DCSUMMARY ---
Discharge Summary
Discharge Data
Date of Admission: 01/03/24
Date of Discharge: 01/06/24
-
Pending Results: No
Hospital Course
Discharging Physician : Dr Yaakov Hernandez
Disposition : Home
Primary care physician : Unknown
Principal Discharge diagnosis :
Incarcerated paraesophageal hernia causing gastric outlet obstruction
Chronic Discharge diagnosis :
Bicuspid aortic valve/aortic stenosis status post bioprosthetic aortic valve placement
Type 2 diabetes mellitus
Essential hypertension
Gastroesophageal reflux disease
Hyperlipidemia
History of Schatzki's ring
History of oral herpes
Hospital Course :
Patient is a 78-year-old male with no mentioned past medical history came to ER for having new onset of abdominal pain nausea and vomiting. Symptoms were sudden onset after meal patient was able to pass gas. In ER patient had CT abdomen pelvis
which showed a paraesophageal hernia with organoaxial rotation of stomach causing gastric outlet obstruction. Case was discussed with general surgery and patient had nasogastric tube placed for gastric decompression. Patient was started on
symptomatic treatment and was admitted to [facility]. Patient had a follow-up upper GI series confirming the finding of gastric outlet obstruction. General surgery took patient to the OR with patient undergoing robotic laparoscopic repair of
incarcerated paraesophageal hernia with gastropexy. Postprocedure patient was monitored in the hospital and was advanced on diet as tolerated. PIPPA drain was removed before discharge. Patient was discharged post medical stabilization with follow-up
with general surgery in office.
Important imaging findings :
CT a/p
1. MODERATE-SIZED PARAESOPHAGEAL HIATAL HERNIA with organoaxial positioning of the stomach and moderate gastric distention. Mild distention and moderate wall thickening in left upper quadrant jejunal small bowel loops. Diagnostic possibilities are
(1) an acute gastroenteritis or (2) a partial gastric outlet obstruction secondary to a partially obstructing gastric volvulus.
2. Very severe diverticulosis in the sigmoid colon.
3. Large number of bilateral renal cysts.
4. Mild distention of the urinary bladder.
5. 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
Upper GI series
1. Large hiatal hernia.
2. Severe gastroesophageal reflux.
3. Only trace contrast progressed into the proximal duodenum at 15 minutes. Cannot rule out partially obstructing gastric volvulus.
Procedure findings :
01/03 Robotic assisted laparoscopic repair incarcerated paraesophageal hernia with anterior gastropexy; EGD
Discharge Plan
-
Patient Disposition: Home (Routine Discharge)
Discharge Diagnosis/Procedures: Gastric volvulus from paraesophageal hernia status post robotic assisted laparoscopic repair with gastropexy, EGD with giovanna's lesions
Condition: Fair
Diet: Other diet
Additional Diets: You will need to be on a full liquid to soft diet as tolerated for the next 1-2 weeks. Supplement your diet with protein shakes as needed. Avoid large meals and chew any solid food very well.
Activity: No strenuous activity
Additional Activity: Do not lift over 15 lbs
Driving Restrictions: As prior to admission
Bathing Restrictions: OK to Shower
Wound Care: The glue over your incisions will flake off on its own in 2-3 weeks. Beneath the glue are dissolving sutures. Avoid scrubbing or picking off the glue and allow it to naturally fall off.
Referrals:
Jamil Donovan MD [Active] - in two to four weeks
PRIVATE,PHYSICIAN [Family Provider] -
Prescriptions:
Continued
omeprazole 20 mg Capsule,Delayed Release(Dr/Ec)
40 mg PO BID
rosuvastatin [Crestor] 40 mg Tablet
40 mg PO QPM
cyanocobalamin (vitamin B-12) 1,000 mcg Tablet
1,000 mcg PO DAILY
cholecalciferol (vitamin D3) [Vitamin D3] 25 mcg (1,000 unit) Tablet
25 mcg PO DAILY
coQ10 (ubiquinol) 100 mg Capsule
100 mg PO DAILY
metformin 500 mg Tablet
1,000 mg PO BID
aspirin 325 mg Tablet
325 mg PO DAILY
losartan 25 mg Tablet
25 mg PO DAILY
diphenhydramine-acetaminophen [Tylenol PM Extra Strength] 25-500 mg Tablet
1 tab PO HS
simethicone 80 mg Tablet,Chewable
80 mg PO BIDPRN PRN (Reason: gas pains)
dapagliflozin propanediol [Farxiga] 10 mg Tablet
10 mg PO DAILY
Discharge Orders:
Discharge Patient (As Directed); Ordered 01/06/24
Ordered By: Yaakov Hernandez
Discharge Date and Time
Discharge Date/Time: 01/06/24 14:38
Print Language: IRISH
== END 2024-01-06 14:38 | disposition home or self-care (01) | DRG 327 ==
LOC: 2 NORTH 09:03
PROVIDERS: Student in an Organized Health Care Education/Training Program; ADMITTING PHYSICIAN Hospitalist; CONSULT PHYSICIAN Surgery; EMERGENCY PHYSICIAN Emergency Medicine
PROC: 0DS64ZZ Reposition Stomach, Percutaneous Endoscopic Approach (ICD-10-PCS; 2024-01-04)
PROC: 8E0W4CZ Robotic Assisted Procedure of Trunk Region, Percutaneous Endoscopic Approach (ICD-10-PCS; 2024-01-04)
PROC: 0BQT4ZZ Repair Diaphragm, Percutaneous Endoscopic Approach (ICD-10-PCS; 2024-01-04)
PROC: 0DJ08ZZ Inspection of Upper Intestinal Tract, Via Natural or Artificial Opening Endoscopic (ICD-10-PCS; 2024-01-04)
DX: K44.0 Diaphragmatic hernia with obstruction, without gangrene (principal); K31.1 Adult hypertrophic pyloric stenosis; E11.9 Type 2 diabetes mellitus without complications; I10 Essential (primary) hypertension; K21.9 Gastro-esophageal reflux disease without esophagitis; K31.89 Other diseases of stomach and duodenum; E78.5 Hyperlipidemia, unspecified; Z95.3 Presence of xenogenic heart valve
CPT/HCPCS: 43752; 74018; 74177; 74240; 80048; 80053; 81003; 82962; 83036; 83605; 83690; 85025; 85027; 93005; 96361; 96374; 96375; 99285; Q9967

== ENCOUNTER → 2024-02-02 10:09 | Outpatient (REF) | payer MEDICARE, OTHER, SELFPAY | LOC: RAD 10:09 | PROVIDERS: ATTENDING PHYSICIAN Internal Medicine | DX: R05.3 Chronic cough (principal) | CPT/HCPCS: 71046 ==

== ENCOUNTER → 2024-06-10 08:21 | Outpatient (REF) | payer MEDICARE, OTHER, SELFPAY ==
[2024-06-10 09:06] LABS: % Basophils 0.6 % (0-2); % Eosinophils 4.5 % (0-6); % Immature Granulocytes 0.3 % (0-0.5); % Lymphocytes 15.6 % (20.5-51.1); % Monocytes 6.9 % (1.7-9.3); % Neutrophils 72.1 % (42.2-75.2); Absolute Basophils 0.1 10^3/uL (0-0.2); Absolute Eosinophils 0.4 10^3/uL (0-0.7); Absolute Lymphocytes 1.2 10^3/uL (1.2-3.4); Absolute Monocytes 0.5 10^3/uL (0.1-0.6); Absolute Neutrophils 5.6 10^3/uL (1.4-6.5); Hematocrit 44.6 % (39.0-52.0); Hemoglobin 15.3 g/dL (13.0-18.0); Mean Corp Hgb Conc. 34.3 g/dL (33.0-37.0); Mean Corpuscular Hgb 32.1 pg (27.0-31.0); Mean Corpuscular Volume 93.5 fL (80.0-94.0); Mean Platelet Volume 10.8 fL (7.4-10.4); Nucleated Red Blood Cells % 0 % (-); Platelet Count 190 10^3/uL (130-400); Red Blood Cell Count 4.77 10^6/uL (4.70-6.10); Red Cell Dist. Width 12.5 % (11.5-14.5); White Blood Cell Count 7.8 10^3/uL (4.8-10.8)
[2024-06-10 09:26] LABS: ALT (SGPT) 19 U/L (0-50); AST (SGOT) 20 U/L (17-59); Albumin 4.9 g/dl (3.5-5.0); Alkaline Phosphatase 42 U/L (38-126); Blood Urea Nitrogen 24 mg/dl (9-20); Carbon Dioxide 28 mmol/L (22-30); Chloride 104 mmol/L (98-107); Glucose 138 mg/dl (70-99); HDL Cholesterol 52 mg/dl; LDL Cholesterol, Calculated 46 mg/dl; Potassium 4.6 mmol/L (3.5-5.1); Sodium 142 mmol/L (135-145); Total Bilirubin 0.7 mg/dl (0.2-1.3); Total Cholesterol 126 mg/dl (50-199); Triglyceride 144 mg/dl (10-149); Very Low Density Lipoprotein 28 mg/dl (0-30); eGFR > 60.00
[2024-06-10 09:46] LABS: Microalbumin, Random Urine 3.3 mg/dl (0.6-1.7)
[2024-06-10 10:33] LABS: TSH 1.37 uIU/ml (0.47-4.68)
== END ==
LOC: REG 08:21
PROVIDERS: ATTENDING PHYSICIAN Internal Medicine
DX: E11.9 Type 2 diabetes mellitus without complications (principal); E78.2 Mixed hyperlipidemia; K21.9 Gastro-esophageal reflux disease without esophagitis; Z12.5 Encounter for screening for malignant neoplasm of prostate
CPT/HCPCS: 36415; 80053; 80061; 82043; 84443; 85025; G0103

== ENCOUNTER → 2024-11-05 15:37 | Outpatient (REF) | payer MEDICARE, OTHER, SELFPAY ==
[2024-11-05 16:45] LABS: Blood Urea Nitrogen 22 mg/dl (9-20)
== END ==
LOC: REG 15:37
PROVIDERS: ATTENDING PHYSICIAN Nurse Practitioner Acute Care; FAMILY PHYSICIAN Internal Medicine
DX: I71.21 Aneurysm of the ascending aorta, without rupture (principal); I35.9 Nonrheumatic aortic valve disorder, unspecified
CPT/HCPCS: 36415; 82550; 84520

== ENCOUNTER → 2024-11-06 14:40 | Outpatient (REF) | payer MEDICARE, OTHER, SELFPAY | LOC: HWRCS 14:40 | PROVIDERS: FAMILY PHYSICIAN Internal Medicine | DX: I71.21 Aneurysm of the ascending aorta, without rupture (principal); I35.9 Nonrheumatic aortic valve disorder, unspecified | CPT/HCPCS: 93306 ==

== ENCOUNTER → 2024-11-11 12:50 | Outpatient (REF) | payer MEDICARE, OTHER, SELFPAY | LOC: RAD 12:50 | PROVIDERS: ATTENDING PHYSICIAN Nurse Practitioner Acute Care; FAMILY PHYSICIAN Internal Medicine | DX: I71.21 Aneurysm of the ascending aorta, without rupture (principal); I35.9 Nonrheumatic aortic valve disorder, unspecified | CPT/HCPCS: 71275; Q9967 ==

== ENCOUNTER 2025-01-13 06:19 | Day surgery (SDC) | payer MEDICARE, OTHER, SELFPAY ==
[2025-01-13 07:52] LABS: Glucose - Point of Care 147 mg/dl (70-99)
== END 2025-01-13 09:25 | disposition home or self-care (01) ==
LOC: GI 06:19
PROVIDERS: ATTENDING PHYSICIAN Internal Medicine Gastroenterology
DX: R12 Heartburn (principal); K31.89 Other diseases of stomach and duodenum; K29.50 Unspecified chronic gastritis without bleeding; R89.7 Abnormal histological findings in specimens from other organs, systems and tissues
CPT/HCPCS: 43239; 82962; 88305; 88342